=== PATIENT | female | born 1985 | race Two or more races ===

== ENCOUNTER 2017-02-12 11:30 | Emergency (ER) | payer SELFPAY ==
[2016-04-22 00:25] VITALS: BP 122/61
[~2017-02-12 11:30] MED LIST: DOXY50CA PO; FAMO-63 PO; LABE100T3 PO; sertraline
--- NOTE | 2017-02-12 12:19 | PHYS DOC ---
Past Medical History Past Medical History: Anxiety, Depression, Hypertension Past Surgical History: , Tonsillectomy, Tubal ligation, Other Additional Past Surgical Histo: " SURGERY FOR ENDOMETRIOSIS" Alcohol Use: None Drug Use: None Adult General Chief Complaint Chief Complaint: ASTHMA HPI HPI 31-year-old female presenting the emergency department with a rash and shortness of breath. She does have a history of asthma but denies any history of allergies. The rash started 2 days ago. She does not remember encountering any new allergens her knowledge. She does report that she has had a new dog for the last 2 weeks which she thinks may have caused it. Otherwise she denies recent exposure to metals, seafood, peanuts or other nuts, or new detergents. The rash is red. Nonradiating mild intermittent and without alleviating factors. Review of systems is negative for chest pain cough fevers chills abdominal pain. All other review of systems is negative unless otherwise noted in history of present illness. ED course: 31-year-old female presenting to the emergency department with shortness of breath and rash consistent with allergic reaction/anaphylaxis. On examination of the patient she is breathing well on room air without any difficulty. She received a DuoNeb in the emergency department along with steroids. After nebulizer patient is feeling much better. The patient was then discharged home in stable condition to follow up with their primary care physician over the next 2-3 days. They were to return if their symptoms worsened or if they were concerned for any reason. [id number] discharge instructions and return precautions were given. Patient's questions were answered to their satisfaction. Patient is comfortable plan. Review of Systems Review of Systems SEE ABOVE. Current Medications Current Medications Current Medications Medications (Trade) Dose Ordered Sig/Ric Start Time Stop Time Status Last Admin Dose Admin Albuterol/ Ipratropium (Duoneb) 3 ml 1X ONCE 02/12/17 12:30 02/12/17 12:31 DC 02/12/17 12:32 3 ML Prednisone (Prednisone) 50 mg 1X ONCE 02/12/17 12:30 02/12/17 12:31 DC 02/12/17 12:26 50 MG Allergies Allergies Allergies Coded Allergies Type Severity Reaction Last Updated Verified ibuprofen Allergy Severe Shortness of Air 01/20/15 No Physical Exam Physical Exam SEE ABOVE Constitutional: Well developed, well nourished, no acute distress, non-toxic appearance. [] HENT: Normocephalic, atraumatic, bilateral external ears normal, oropharynx moist, no oral exudates, nose normal. [] Eyes: PERRLA, EOMI, conjunctiva normal, no discharge. [] Neck: Normal range of motion, no tenderness, supple, no stridor. [] Cardiovascular:Heart rate regular rhythm, no murmur [] Lungs & Thorax: minimal wheezing. not in resp distress. Normal work of breathing. Abdomen: Bowel sounds normal, soft, no tenderness, no masses, no pulsatile masses. [] Skin: Warm, dry, no erythema, faint maculopapular rash on the upper extremities. Back: No tenderness, no CVA tenderness. [] Extremities: No tenderness, no cyanosis, no clubbing, ROM intact, no edema. [] Neurologic: Alert and oriented X 3, normal motor function, normal sensory function, no focal deficits noted. [] Psychologic: Affect normal, judgement normal, mood normal. [] Current Patient Data Vital Signs Vital Signs Date Time Temp Pulse Resp B/P (MAP) Pulse Ox O2 Delivery O2 Flow Rate FiO2 02/12/17 12:35 97 Room Air EKG EKG [] Radiology/Procedures Radiology/Procedures [] Course & Med Decision Making Course & Med Decision Making Pertinent Labs and Imaging studies reviewed. (See chart for details) [] Dragon Disclaimer Dragon Disclaimer This electronic medical record was generated, in whole or in part, using a voice recognition dictation system. Departure Departure Impression: Primary Impression: Allergic reaction Additional Impression: Asthma Disposition: ADMITTED INPATIENT Condition: STABLE Referrals: UNKNOWN PCP NAME (PCP) ROSETTA RODRIGUEZ MD Patient Instructions: Allergy Tests Additional Instructions: Thank you for allowing us to participate in your care today. Followup with your primary care physician in 3 days if your symptoms do not improve. Call your Primary Doctor tomorrow and inform them of your visit today. If you do not have a primary care provider you can ask for a list of our primary care providers. Return to the emergency department you have any new or concerning findings. This should be evaluated by the primary care physician and any necessary consulting services for continued management within a few days after discharge. Return to emergency room if you have any new or concerning symptoms including but not limited to fever, chills, nausea, vomiting, intractable pain, any new rashes, chest pain, shortness of air, uncontrolled bleeding, difficulty breathing, and/or vision loss. Scripts Prednisone (PREDNISONE) 50 Mg Tablet 50 MG PO DAILY, #4 TAB You received a dose of steroids in the emergency department. Start this medication tomorrow. Prov: DANIELA KHAN MD 02/12/17 Problem Qualifiers DANIELA KHAN MD Feb 12, 2017 12:19
[2017-02-12] MEDS ORDERED: IPRATRPIUM/ALBUTEROL 0.5/2.5MG 3 ML NEBU. NEB ONE (12:30)
[2017-02-12] MEDS ORDERED: predniSONE 10 MG TABLET PO ONE (12:30)
[2017-02-12] MEDS ORDERED: PRED50TA PO (12:53)
== END 2017-02-12 13:12 | disposition other institution (70) ==
LOC: ER 11:30
DX: T78.40XA Allergy, unspecified, initial encounter (principal); J45.909 Unspecified asthma, uncomplicated; I10 Essential (primary) hypertension; Z88.8 Allergy status to other drugs, medicaments and biological substances; X58.XXXA Exposure to other specified factors, initial encounter
CPT/HCPCS: 94250; 94640; 99285; J7512; J7620

== ENCOUNTER 2017-12-18 15:52 | Emergency (ER) | payer SELFPAY ==
[2017-12-18 16:13] LABS: URINE HCG POC HCG NEGATIVE (Negative)
[2017-12-18] MEDS: MORPHINE SULFATE 4 MG/ML DISP.SYRIN. IV (16:26)
[2017-12-18] MEDS: ONDANSETRON PF 4 MG/2 ML VIAL. IV (16:26)
[2017-12-18 16:27] LABS: ADD MAN DIFF? NO
[2017-12-18] MEDS: IOHEXOL 300 MG/ML 100ML VIAL. IV (16:30)
[2017-12-18 16:38] LABS: BASO % 0 % (0-3); EOS # 0.9 x10^3/uL (0.0-0.7); EOS % 11 % (0-3); HEMOGLOBIN 14.7 g/dL (12.0-15.5); LYMPH # 1.6 x10^3/uL (1.0-4.8); LYMPH % 20 % (24-48); MEAN CORPUSCULAR HEMOGLOBIN 33 pg (25-35); MEAN CORPUSCULAR HGB CONC 35 g/dL (31-37); MEAN CORPUSCULAR VOLUME 95 fL (79-100); MONO # 0.4 x10^3/uL (0.0-1.1); MONO % 5 % (0-9); NEUT # 5.2 x10^3uL (1.8-7.7); NEUT % 64 % (31-73); PLATELET COUNT 208 x10^3/uL (140-400); RED BLOOD COUNT 4.42 x10^6/uL (3.50-5.40); RED CELL DISTRIBUTION WIDTH 13.2 % (11.5-14.5); WHITE BLOOD COUNT 8.2 x10^3/uL (4.0-11.0)
[2017-12-18 16:39] LABS: BILIRUBIN,URINE NEGATIVE (NEG); CLARITY,URINE CLEAR; COLOR,URINE YELLOW; GLUCOSE,URINE NEGATIVE (NEG); NITRITE,URINE NEGATIVE (NEG); PH,URINE 6.5; PROTEIN,URINE NEGATIVE (NEG-TRACE); UROBILINOGEN,URINE 0.2 mg/dL (0.2 mg/dL)
[2017-12-18] MEDS ORDERED: CONTRAST GIVEN. MC (16:45)
[2017-12-18 16:55] LABS: ANION GAP 9 (6-14); BLOOD UREA NITROGEN 11 mg/dL (7-20); BUN/CREATININE RATIO 14 (6-20); CALCIUM 8.7 mg/dL (8.5-10.1); CARBON DIOXIDE 25 mmol/L (21-32); CHLORIDE 105 mmol/L (98-107); CREATININE 0.8 mg/dL (0.6-1.0); GFR 82.6; GLUCOSE 101 mg/dL (70-99); POTASSIUM 3.8 mmol/L (3.5-5.1); SODIUM 139 mmol/L (136-145)
[2017-12-18 16:57] LABS: BACTERIA,URINE FEW /HPF (0-FEW); RBC,URINE 0 /HPF (0-2); SQUAMOUS EPITHELIAL CELL,UR MOD /LPF; WBC,URINE 0 /HPF (0-4)
[2017-12-18 16:58] LABS: ALBUMIN/GLOBULIN RATIO 1.2 (1.0-1.7); ALK PHOS 62 U/L (46-116); ALT (SGPT) 24 U/L (14-59); AMYLASE 47 U/L (25-115); AST (SGOT) 14 U/L (15-37); TOTAL BILIRUBIN 0.3 mg/dL (0.2-1.0); TOTAL PROTEIN 7.4 g/dL (6.4-8.2)
[2017-12-18] MEDS: LIDO:MAALOX 1:1 20 ML SINGLE DOSE. SWSW (19:20)
== END 2017-12-18 19:57 | disposition home or self-care (01) ==
LOC: ER 19:57
DX: R10.11 Right upper quadrant pain (principal); F41.9 Anxiety disorder, unspecified; F32.9 Major depressive disorder, single episode, unspecified; I10 Essential (primary) hypertension; Z98.51 Tubal ligation status; Z88.6 Allergy status to analgesic agent
CPT/HCPCS: 36415; 74177; 80053; 81001; 81025; 82150; 85025; 96374; 96375; 99285-25; J2270; J2405; Q9967

== ENCOUNTER 2018-07-31 20:51 | Emergency (ER) | payer OTHER ==
[~2018-07-31] VITALS: Ht 154.9 cm; Wt 106.1 kg
[~2018-07-31 20:51] MED LIST changes: -LABE100T3 PO; +LABE100T5 PO; +PRED50TA PO
[2018-07-31] MEDS ORDERED: KETOROLAC 15 MG/ML VIAL. IV ONE (22:00)
[2018-07-31] MEDS ORDERED: diphenhydrAMINE 50 MG/ML VIAL IVP ONE (22:00)
[2018-07-31] MEDS ORDERED: METOCLOPRAMIDE HCL 10 MG/2 ML VIAL. IV ONE (22:00)
[2018-07-31] MEDS ORDERED: DEXAMETHASONE SOD PHOS 20 MG/5 ML VIAL. IV ONE (22:00)
[2018-07-31] MEDS ORDERED: IV NORMAL SALINE 1000ML BAG 1,000 ML IV ONE (22:00)
[2018-07-31 22:01] LABS: BASO % 0 % (0-3); EOS # 0.4 x10^3/uL (0.0-0.7); EOS % 5 % (0-3); HEMATOCRIT 41.7 % (36.0-47.0); HEMOGLOBIN 14.3 g/dL (12.0-15.5); LYMPH # 2.1 x10^3/uL (1.0-4.8); LYMPH % 27 % (24-48); MEAN CORPUSCULAR HEMOGLOBIN 33 pg (25-35); MEAN CORPUSCULAR HGB CONC 34 g/dL (31-37); MEAN CORPUSCULAR VOLUME 96 fL (79-100); MONO # 0.4 x10^3/uL (0.0-1.1); MONO % 6 % (0-9); NEUT # 4.8 x10^3uL (1.8-7.7); NEUT % 62 % (31-73); PLATELET COUNT 262 x10^3/uL (140-400); RED BLOOD COUNT 4.35 x10^6/uL (3.50-5.40); RED CELL DISTRIBUTION WIDTH 12.9 % (11.5-14.5); WHITE BLOOD COUNT 7.9 x10^3/uL (4.0-11.0)
[2018-07-31 22:03] LABS: BILIRUBIN,URINE NEGATIVE (NEG); CLARITY,URINE CLEAR; COLOR,URINE YELLOW; NITRITE,URINE NEGATIVE (NEG); PROTEIN,URINE NEGATIVE (NEG-TRACE); UROBILINOGEN,URINE 0.2 mg/dL (0.2 mg/dL)
[2018-07-31 22:10] LABS: CALCIUM 9.2 mg/dL (8.5-10.1); CREATININE 0.6 mg/dL (0.6-1.0); GFR 115.1; POTASSIUM 3.8 mmol/L (3.5-5.1)
[2018-07-31 22:16] LABS: ALBUMIN 4.3 g/dL (3.4-5.0); ALBUMIN/GLOBULIN RATIO 1.3 (1.0-1.7); MAGNESIUM 2.3 mg/dL (1.8-2.4); TOTAL BILIRUBIN 0.3 mg/dL (0.2-1.0); TOTAL PROTEIN 7.7 g/dL (6.4-8.2)
[2018-07-31 22:16] LABS: BACTERIA,URINE FEW /HPF (0-FEW); RBC,URINE 0 /HPF (0-2); SQUAMOUS EPITHELIAL CELL,UR OCC /LPF; WBC,URINE 0 /HPF (0-4)
[2018-07-31 22:25] LABS: CREATINE KINASE 134 U/L (26-192)
--- NOTE | 2018-07-31 22:49 | RAD ---
CT brain without contrast, CT cervical spine without contrast. HISTORY: Headache, neck pain CT brain CT scan of brain was done without contrast. There are fluid levels in the maxillary sinus. There is partial opacification of the ethmoid sinuses. A skull fracture is not identified. There is no intracranial hemorrhage or subdural hematoma. There is no mass or shift of the midline intracranially. Ventricles are normal in size. IMPRESSION: 1. Maxillary and ethmoid sinusitis. 2. No intracranial hemorrhage or mass or acute finding noted intracranially. End impression CT cervical spine Axial CT images were obtained to the cervical spine. Sagittal and coronal reconstructed images were reviewed. Thyroid is homogeneous. There is no focal disc protrusion. A C-spine fracture is not identified. There is reversal the normal cervical lordosis probably related to positioning. Disc spaces are normal in height. IMPRESSION: 1. No fracture or acute osseous abnormality noted in the cervical spine. PQRS Compliance Statement: One or more of the following individualized dose reduction techniques were utilized for this examination: 1. Automated exposure control 2. Adjustment of the mA and/or kV according to patient size 3. Use of iterative reconstruction technique Electronically signed by: Kel Farfan MD (07/31/2018 10:44 PM) [facility]
--- NOTE | 2018-07-31 22:58 | PHYS DOC ---
Past Medical History Past Medical History: Anxiety, Depression, Hypertension Past Surgical History: , Tonsillectomy, Tubal ligation, Other Additional Past Surgical Histo: " SURGERY FOR ENDOMETRIOSIS" Alcohol Use: None Drug Use: None Adult General Chief Complaint Chief Complaint: HEADACHE HPI HPI Patient is a 32 year old [f__sex] who presents with [] Review of Systems Review of Systems Constitutional: Denies fever or chills [] Eyes: Denies change in visual acuity, redness, or eye pain [] HENT: Denies nasal congestion or sore throat [] Respiratory: Denies cough or shortness of breath [] Cardiovascular: No additional information not addressed in HPI [] GI: Denies abdominal pain, nausea, vomiting, bloody stools or diarrhea [] : Denies dysuria or hematuria [] Musculoskeletal: Denies back pain or joint pain [] Integument: Denies rash or skin lesions [] Neurologic: Denies headache, focal weakness or sensory changes [] Endocrine: Denies polyuria or polydipsia [] All other systems were reviewed and found to be within normal limits, except as documented in this note. Current Medications Current Medications Current Medications Medications (Trade) Dose Ordered Sig/Ric Start Time Stop Time Status Last Admin Dose Admin Cyclobenzaprine HCl (Flexeril) 10 mg 1X ONCE 07/31/18 23:30 07/31/18 23:31 Dexamethasone Sodium Phosphate (Decadron) 10 mg 1X ONCE 07/31/18 22:00 07/31/18 22:01 DC 07/31/18 21:58 10 MG Diphenhydramine HCl (Benadryl) 50 mg 1X ONCE 07/31/18 22:00 07/31/18 22:01 DC 07/31/18 21:58 50 MG Ketorolac Tromethamine (Toradol 15mg Vial) 15 mg 1X ONCE 07/31/18 22:00 07/31/18 22:01 DC 07/31/18 21:58 15 MG Metoclopramide HCl (Reglan Vial) 10 mg 1X ONCE 07/31/18 22:00 07/31/18 22:01 DC 07/31/18 21:58 10 MG Sodium Chloride 1,000 ml @ 1,000 mls/hr 1X ONCE 07/31/18 22:00 07/31/18 22:59 DC 07/31/18 21:59 1,000 MLS/HR Allergies Allergies Allergies Coded Allergies Type Severity Reaction Last Updated Verified No Known Drug Allergies 07/31/18 No Physical Exam Physical Exam Constitutional: Well developed, well nourished, no acute distress, non-toxic appearance. [] HENT: Normocephalic, atraumatic, bilateral external ears normal, oropharynx moist, no oral exudates, nose normal. [] Eyes: PERRLA, EOMI, conjunctiva normal, no discharge. [] Neck: Normal range of motion, no tenderness, supple, no stridor. [] Cardiovascular:Heart rate regular rhythm, no murmur [] Lungs & Thorax: Bilateral breath sounds clear to auscultation [] Abdomen: Bowel sounds normal, soft, no tenderness, no masses, no pulsatile masses. [] Skin: Warm, dry, no erythema, no rash. [] Back: No tenderness, no CVA tenderness. [] Extremities: No tenderness, no cyanosis, no clubbing, ROM intact, no edema. [] Neurologic: Alert and oriented X 3, normal motor function, normal sensory function, no focal deficits noted. [] Psychologic: Affect normal, judgement normal, mood normal. [] Current Patient Data Vital Signs Vital Signs Date Time Temp Pulse Resp B/P (MAP) Pulse Ox O2 Delivery O2 Flow Rate FiO2 07/31/18 22:56 75 18 97 07/31/18 21:28 97.7 198/93 (128) Room Air 97.7 Lab Values Laboratory Tests Test 07/31/18 21:30 07/31/18 21:33 07/31/18 21:35 Urine Collection Type Void Urine Color Yellow Urine Clarity Clear Urine pH 6.0 Urine Specific [place] 1.010 Urine Protein Negative mg/dL (NEG-TRACE) Urine Glucose (UA) Negative mg/dL (NEG) Urine Ketones (Stick) 15 mg/dL (NEG) Urine Blood Trace (NEG) Urine Nitrite Negative (NEG) Urine Bilirubin Negative (NEG) Urine Urobilinogen Dipstick 0.2 mg/dL (0.2 mg/dL) Urine Leukocyte Esterase Negative (NEG) Urine RBC 0 /HPF (0-2) Urine WBC 0 /HPF (0-4) Urine Squamous Epithelial Cells Occ /LPF Urine Bacteria Few /HPF (0-FEW) POC Urine HCG, Qualitative Hcg negative (Negative) White Blood Count 7.9 x10^3/uL (4.0-11.0) Red Blood Count 4.35 x10^6/uL (3.50-5.40) Hemoglobin 14.3 g/dL (12.0-15.5) Hematocrit 41.7 % (36.0-47.0) Mean Corpuscular Volume 96 fL (79-100) Mean Corpuscular Hemoglobin 33 pg (25-35) Mean Corpuscular Hemoglobin Concent 34 g/dL (31-37) Red Cell Distribution Width 12.9 % (11.5-14.5) Platelet Count 262 x10^3/uL (140-400) Neutrophils (%) (Auto) 62 % (31-73) Lymphocytes (%) (Auto) 27 % (24-48) Monocytes (%) (Auto) 6 % (0-9) Eosinophils (%) (Auto) 5 % (0-3) H Basophils (%) (Auto) 0 % (0-3) Neutrophils # (Auto) 4.8 x10^3uL (1.8-7.7) Lymphocytes # (Auto) 2.1 x10^3/uL (1.0-4.8) Monocytes # (Auto) 0.4 x10^3/uL (0.0-1.1) Eosinophils # (Auto) 0.4 x10^3/uL (0.0-0.7) Basophils # (Auto) 0.0 x10^3/uL (0.0-0.2) Sodium Level 139 mmol/L (136-145) Potassium Level 3.8 mmol/L (3.5-5.1) Chloride Level 100 mmol/L (98-107) Carbon Dioxide Level 27 mmol/L (21-32) Anion Gap 12 (6-14) Blood Urea Nitrogen 12 mg/dL (7-20) Creatinine 0.6 mg/dL (0.6-1.0) Estimated GFR (Cockcroft-Gault) 115.1 BUN/Creatinine Ratio 20 (6-20) Glucose Level 121 mg/dL (70-99) H Calcium Level 9.2 mg/dL (8.5-10.1) Magnesium Level 2.3 mg/dL (1.8-2.4) Total Bilirubin 0.3 mg/dL (0.2-1.0) Aspartate Amino Transferase (AST) 19 U/L (15-37) Alanine Aminotransferase (ALT) 28 U/L (14-59) Alkaline Phosphatase 79 U/L (46-116) Creatine Kinase 134 U/L (26-192) Creatine Kinase MB (Mass) 1.5 ng/mL (0.0-3.6) Creatine Kinase MB Relative Index 1.1 % (0-4) Troponin I Quantitative < 0.017 ng/mL (0.000-0.055) XP-Ksk-[id number]-Type Natriuretic Peptide < 5 pg/mL (0-124) Total Protein 7.7 g/dL (6.4-8.2) Albumin 4.3 g/dL (3.4-5.0) Albumin/Globulin Ratio 1.3 (1.0-1.7) Lipase 121 U/L (73-393) Laboratory Tests 07/31/18 21:35 Laboratory Tests 07/31/18 21:35 EKG EKG @2150 NSR at 76bpm, NO ST elevation, nonspecific t wave inversion III Radiology/Procedures Radiology/Procedures [] Course & Med Decision Making Course & Med Decision Making Pertinent Labs and Imaging studies reviewed. (See chart for details) [] Dragon Disclaimer Dragon Disclaimer This electronic medical record was generated, in whole or in part, using a voice recognition dictation system. Departure Departure Impression: Primary Impression: Headache Additional Impression: Neck pain Disposition: 01 HOME, SELF-CARE Condition: STABLE Referrals: UNKNOWN PCP NAME (PCP) JOHNATHAN GARCIA MD, BRIAN N MD Patient Instructions: Cervical Radiculopathy, [id number], Headache, FAQs Scripts Butalb/Acetaminophen/Caffeine ([id number] 50-325-40) 1 Each Tablet 1 EACH PO Q6HRS PRN for HEADACHE, #14 TAB Prov: ROSETTA CARY DO 07/31/18 Ondansetron (ONDANSETRON ODT) 4 Mg Tab.rapdis 1 TAB PO PRN Q6-8HRS PRN for NAUSEA, #16 TAB Prov: ROSETTA CARY DO 07/31/18 Orphenadrine Citrate (ORPHENADRINE CITRATE) 100 Mg Tablet.er 100 MG PO BID PRN for MUSCLE PAIN, #20 Prov: ROSETTA CARY DO 07/31/18 Problem Qualifiers Primary Impression: Headache Headache type: unspecified Headache chronicity pattern: acute headache Intractability: intractable Qualified Codes: R51 - Headache ROSETTA CARY DO Jul 31, 2018 22:58
[2018-07-31 23:03] VITALS: BP 123/66
[2018-07-31] MEDS ORDERED: ONDA4TAB12 PO (23:06)
[2018-07-31] MEDS ORDERED: BUTA1TAB23 PO (23:06)
[2018-07-31] MEDS ORDERED: ORPH100T PO (23:06)
[2018-07-31] MEDS ORDERED: CYCLOBENZAPRINE 10 MG TABLET. PO ONE (23:30)
--- NOTE | 2018-08-01 03:31 | EKG ---
[facility] [address] [place] [address] Test Date: 2018-07-31 Test Time: 21:50:51 Pat Name: JOLIE CRABTREE Department: Room: Gender: F Pick[employer] Operator: : 1985 Requested By: ROSETTA CARY Order Number: [id number] Reading MD: Andrés Cortes MD Measurements Intervals [place] Rate: 76 P: 37 TN: 182 QRS: 36 QRSD: 96 T: 0 QT: 394 QTc: 447 Interpretive Statements SINUS RHYTHM NON-SPECIFIC ST/T CHANGES Electronically Signed On 08-01-2018 8:35:51 [employer]LECT[employer] by Andrés Cortes MD
== END 2018-07-31 23:17 | disposition home or self-care (01) ==
LOC: ER 20:51
DX: R51 Headache (principal); M54.2 Cervicalgia; J32.0 Chronic maxillary sinusitis; J32.2 Chronic ethmoidal sinusitis; I10 Essential (primary) hypertension; F32.9 Major depressive disorder, single episode, unspecified; F41.9 Anxiety disorder, unspecified
CPT/HCPCS: 36415; 70450; 72125; 80053; 81001; 81025; 82553; 83690; 83735; 83880; 84484; 85025; 93005; 96374; 96375; 99284; J1100; J1200; J1885; J2765; J7030; 96361

== ENCOUNTER 2019-06-18 21:51 | Emergency (ER) | payer SELFPAY ==
[~2019-06-18] VITALS: Ht 154.9 cm; Wt 109.8 kg
[~2019-06-18 21:51] MED LIST changes: +BUTA1TAB23 PO; +ONDA4TAB12 PO; +ORPH100T PO
[2019-06-18 22:01] VITALS: BP 209/108
[2019-06-18] MEDS ORDERED: traMADol 50 MG TABLET PO ONE (22:30)
[2019-06-18] MEDS ORDERED: BUPIVACAINE MPF 0.5% 30 ML VIAL. INJ ONE (22:30)
[2019-06-18] MEDS ORDERED: AMOX1TAB61 PO (22:38)
--- NOTE | 2019-06-18 22:39 | PHYS DOC ---
Past Medical History Past Medical History: Anxiety, Depression, Hypertension Past Surgical History: , Tonsillectomy, Tubal ligation, Other Additional Past Surgical Histo: " SURGERY FOR ENDOMETRIOSIS" Alcohol Use: None Drug Use: None Adult General Chief Complaint Chief Complaint: DENTAL PROBLEM HPI HPI 33-year-old female presents to the emergency department with complaints of toothache. Patient states she's had this off and on and it flares up periodically. She's been in contact with a dentist however has not had scheduled extraction at this time. She's been taking [id number] medications including Tylenol as well as Motrin with no significant improvement. She complains of left ear pain as well. Patient denies any fevers, nausea, vomiting, chest pain, shortness breath, abdominal pain. She does have some intermittent headache associated with pain. All other ROS negative unless documented in HPI Review of Systems Review of Systems See Above Current Medications Current Medications Current Medications Medications (Trade) Dose Ordered Sig/Ric Start Time Stop Time Status Last Admin Dose Admin Bupivacaine HCl (Sensorcaine Mpf 0.5%) 30 ml 1X ONCE 06/18/19 22:30 06/18/19 22:31 DC Tramadol HCl (Ultram) 50 mg 1X ONCE 06/18/19 22:30 06/18/19 22:31 DC Allergies Allergies Allergies Coded Allergies Type Severity Reaction Last Updated Verified No Known Drug Allergies 07/31/18 No Physical Exam Physical Exam See Above Constitutional: Well developed, well nourished, distress 2/2 pain, non-toxic appearance. [] HENT: Normocephalic, atraumatic, bilateral external ears normal, left TM with inflammation, oropharynx moist, no oral exudates, irritation appreciated to top right molar, no drainage, nose normal. [] Neck: Normal range of motion, no tenderness, supple, no stridor. [] Cardiovascular:Heart rate regular rhythm, no murmur [] Lungs & Thorax: Bilateral breath sounds clear to auscultation [] Abdomen: Bowel sounds normal, soft, no tenderness, no masses, no pulsatile masses. [] Skin: Warm, dry, no erythema, no rash. [] Extremities: No tenderness, no edema. [] Neurologic: Alert and oriented X 3, no focal deficits noted. [] Psychologic: Affect normal, judgement normal, mood normal. [] Current Patient Data Vital Signs Vital Signs Date Time Temp Pulse Resp B/P (MAP) Pulse Ox O2 Delivery O2 Flow Rate FiO2 06/18/19 22:01 98.3 95 22 209/108 (141) 98 Room Air 98.3 EKG EKG [] Radiology/Procedures Radiology/Procedures [] Course & Med Decision Making Course & Med Decision Making Pertinent Labs and Imaging studies reviewed. (See chart for details) []33-year-old female presents to the emergency department with complaints of toothache. Patient states she's had this off and on and it flares up periodically. She's been in contact with a dentist however has not had scheduled extraction at this time. She's been taking qbmw-qbl-rtwezik medications including Tylenol as well as Motrin with no significant improvement. She complains of left ear pain as well. Patient denies any fevers, nausea, vomiting, chest pain, shortness breath, abdominal pain. She does have some intermittent headache associated with pain. 2cc bupivicaine injected into the Superior alveolar nerve for pain control Tramadol 50mg PO x 1 Evidence of left OM - abx provided upon discharge Juanita Disclaimer Juanita Disclaimer This electronic medical record was generated, in whole or in part, using a voice recognition dictation system. Departure Departure Impression: Primary Impression: Dental caries Additional Impression: Otitis media Disposition: 01 HOME, SELF-CARE Condition: IMPROVED Referrals: UNKNOWN PCP NAME (PCP) Patient Instructions: Dental Caries, Otitis Media, Adult, [id number] Additional Instructions: Recommend follow up with PCP 3 - 5 days Return to the ER with worsening symptoms, intractable pain, fever, altered mental status Tylenol/Motrin as needed for pain Take antibiotics as directed Scripts Amoxicillin/Potassium Clav (AUGMENTIN 875-125 TABLET) 1 Each Tablet 1 TAB PO Q12HR, #20 TAB Prov: KASHIF ZUNIGA MD 06/18/19 Problem Qualifiers Additional Impression: Otitis media Otitis media type: unspecified Laterality: left Qualified Codes: H66.92 - Otitis media, unspecified, left ear KASHIF ZUNIGA MD Jun 18, 2019 22:39
== END 2019-06-18 22:45 | disposition home or self-care (01) ==
LOC: ER 21:51
DX: K02.9 Dental caries, unspecified (principal); H66.92 Otitis media, unspecified, left ear; F41.9 Anxiety disorder, unspecified; F32.9 Major depressive disorder, single episode, unspecified; I10 Essential (primary) hypertension; Z90.89 Acquired absence of other organs; Z98.51 Tubal ligation status; Z98.890 Other specified postprocedural states
CPT/HCPCS: 64400; 99284; J3490

== ENCOUNTER 2019-07-28 10:14 | Emergency (ER) | payer MEDICAID, OTHER ==
[~2019-07-28] VITALS: Ht 154.9 cm; Wt 109.1 kg
[~2019-07-28 10:14] MED LIST changes: +AMOX1TAB61 PO
--- NOTE | 2019-07-28 10:36 | PHYS DOC ---
Past Medical History Past Medical History: Anxiety, Depression, Hypertension (KATHLEEN DOWD APRN) Past Surgical History: , Tonsillectomy, Tubal ligation, Other Additional Past Surgical Histo: " SURGERY FOR ENDOMETRIOSIS" (KATHLEEN DOWD APRN) Alcohol Use: None Drug Use: None (KATHLEEN DOWD APRN) Adult General Chief Complaint Chief Complaint: DENTAL PROBLEM HPI HPI Patient is a 33 year old female who presents to the ER with complaints of right upper dental pain intermittently for the last year. Pt states the pain became severe again yesterday. She denies any drainage, or gingival swelling of the affected tooth. She denies any injury, fever, nausea, or vomiting. PT states the pain radiates to her left ear and states her left cheek feels swollen. She reports a hx of hypertension and takes labetalol for management of it. She re ports that she took her labetalol this morning. Pt denies any chest pain, shortness of breath, palpitations, numbness, tingling, or weakness. She reports a mild headache. PT currently rates her dental pain a 10/10 on the pain scale, she denies any alleviating factors. PT states she has an appointment with her dentist this week on to have the tooth treated. All other ROS is neg unless otherwise noted in HPI. (KATHLEEN DOWD APRN) Review of Systems Review of Systems See Above (KATHLEEN DOWD APRN) Current Medications Current Medications Current Medications Medications (Trade) Dose Ordered Sig/Ric Start Time Stop Time Status Last Admin Dose Admin Acetaminophen/ Hydrocodone Bitart (Lortab 5/325) 1 tab 1X ONCE 07/28/19 11:00 07/28/19 11:01 DC 07/28/19 10:55 1 TAB Clonidine HCl (Catapres) 0.1 mg 1X ONCE 07/28/19 10:45 07/28/19 10:46 DC 07/28/19 10:50 0.1 MG Hydralazine HCl (Apresoline Inj) 10 mg 1X ONCE 07/28/19 12:15 07/28/19 12:16 DC 07/28/19 12:34 10 MG Ondansetron HCl (Zofran) 4 mg 1X ONCE 2/2/20 12:15 07/28/19 12:16 DC 07/28/19 12:34 4 MG (ROSETTA CARY DO) Allergies Allergies Allergies Coded Allergies Type Severity Reaction Last Updated Verified No Known Drug Allergies 07/31/18 No (ROSETTA CARY DO) Physical Exam Physical Exam See Above Constitutional: Well developed, well nourished, no acute distress, non-toxic appearance, obese. [] HENT: Normocephalic, atraumatic, bilateral external ears normal, nose normal; visible decay and fracture of tooth 3 without surrounding gingival erythema or edema. [] Eyes: PERRLA, EOMI, conjunctiva normal, no discharge. [] Neck: Normal range of motion, no stridor. [] Cardiovascular:Heart rate regular rhythm Lungs & Thorax: Respirations even and unlabored, no retractions, no respiratory distress [] Skin: Warm, dry, no erythema, no rash. [] Extremities: No cyanosis, ROM intact Neurologic: Alert and oriented X 3, no focal deficits noted. [] Psychologic: Affect normal, judgement normal, mood normal. [] (KATHLEEN DOWD APRN) Current Patient Data Vital Signs Vital Signs Date Time Temp Pulse Resp B/P (MAP) Pulse Ox O2 Delivery O2 Flow Rate FiO2 07/28/19 13:10 77 18 99 07/28/19 12:34 239/112 07/28/19 10:55 Room Air 07/28/19 10:28 98.9 98.9 (ROSETTA CARY DO) Lab Values Laboratory Tests Test 07/28/19 12:19 07/28/19 12:21 White Blood Count 8.1 x10^3/uL (4.0-11.0) Red Blood Count 4.86 x10^6/uL (3.50-5.40) Hemoglobin 16.2 g/dL (12.0-15.5) H Hematocrit 46.1 % (36.0-47.0) Mean Corpuscular Volume 95 fL (79-100) Mean Corpuscular Hemoglobin 33 pg (25-35) Mean Corpuscular Hemoglobin Concent 35 g/dL (31-37) Red Cell Distribution Width 12.5 % (11.5-14.5) Platelet Count 259 x10^3/uL (140-400) Neutrophils (%) (Auto) 67 % (31-73) Lymphocytes (%) (Auto) 24 % (24-48) Monocytes (%) (Auto) 5 % (0-9) Eosinophils (%) (Auto) 4 % (0-3) H Basophils (%) (Auto) 1 % (0-3) Neutrophils # (Auto) 5.5 x10^3/uL (1.8-7.7) Lymphocytes # (Auto) 1.9 x10^3/uL (1.0-4.8) Monocytes # (Auto) 0.4 x10^3/uL (0.0-1.1) Eosinophils # (Auto) 0.3 x10^3/uL (0.0-0.7) Basophils # (Auto) 0.0 x10^3/uL (0.0-0.2) Sodium Level 141 mmol/L (136-145) Potassium Level 3.6 mmol/L (3.5-5.1) Chloride Level 101 mmol/L (98-107) Carbon Dioxide Level 28 mmol/L (21-32) Anion Gap 12 (6-14) Blood Urea Nitrogen 13 mg/dL (7-20) Creatinine 0.6 mg/dL (0.6-1.0) Estimated GFR (Cockcroft-Gault) 114.4 BUN/Creatinine Ratio 22 (6-20) H Glucose Level 213 mg/dL (70-99) H Calcium Level 9.0 mg/dL (8.5-10.1) Magnesium Level 1.7 mg/dL (1.8-2.4) L Total Bilirubin 0.5 mg/dL (0.2-1.0) Aspartate Amino Transferase (AST) 14 U/L (15-37) L Alanine Aminotransferase (ALT) 23 U/L (14-59) Alkaline Phosphatase 98 U/L (46-116) Creatine Kinase 74 U/L (26-192) Creatine Kinase MB (Mass) 0.7 ng/mL (0.0-3.6) Creatine Kinase MB Relative Index % (0-4) Troponin I Quantitative < 0.017 ng/mL (0.000-0.055) Total Protein 7.2 g/dL (6.4-8.2) Albumin 4.3 g/dL (3.4-5.0) Albumin/Globulin Ratio 1.5 (1.0-1.7) POC Urine HCG, Qualitative Hcg negative (Negative) Laboratory Tests 07/28/19 12:19 Laboratory Tests 07/28/19 12:19 (ROSETTA CARY DO) Lab Values Laboratory Tests Test 07/28/19 12:19 07/28/19 12:21 White Blood Count 8.1 x10^3/uL (4.0-11.0) Red Blood Count 4.86 x10^6/uL (3.50-5.40) Hemoglobin 16.2 g/dL (12.0-15.5) H Hematocrit 46.1 % (36.0-47.0) Mean Corpuscular Volume 95 fL (79-100) Mean Corpuscular Hemoglobin 33 pg (25-35) Mean Corpuscular Hemoglobin Concent 35 g/dL (31-37) Red Cell Distribution Width 12.5 % (11.5-14.5) Platelet Count 259 x10^3/uL (140-400) Neutrophils (%) (Auto) 67 % (31-73) Lymphocytes (%) (Auto) 24 % (24-48) Monocytes (%) (Auto) 5 % (0-9) Eosinophils (%) (Auto) 4 % (0-3) H Basophils (%) (Auto) 1 % (0-3) Neutrophils # (Auto) 5.5 x10^3/uL (1.8-7.7) Lymphocytes # (Auto) 1.9 x10^3/uL (1.0-4.8) Monocytes # (Auto) 0.4 x10^3/uL (0.0-1.1) Eosinophils # (Auto) 0.3 x10^3/uL (0.0-0.7) Basophils # (Auto) 0.0 x10^3/uL (0.0-0.2) Sodium Level 141 mmol/L (136-145) Potassium Level 3.6 mmol/L (3.5-5.1) Chloride Level 101 mmol/L (98-107) Carbon Dioxide Level 28 mmol/L (21-32) Anion Gap 12 (6-14) Blood Urea Nitrogen 13 mg/dL (7-20) Creatinine 0.6 mg/dL (0.6-1.0) Estimated GFR (Cockcroft-Gault) 114.4 BUN/Creatinine Ratio 22 (6-20) H Glucose Level 213 mg/dL (70-99) H Calcium Level 9.0 mg/dL (8.5-10.1) Magnesium Level 1.7 mg/dL (1.8-2.4) L Total Bilirubin 0.5 mg/dL (0.2-1.0) Aspartate Amino Transferase (AST) 14 U/L (15-37) L Alanine Aminotransferase (ALT) 23 U/L (14-59) Alkaline Phosphatase 98 U/L (46-116) Creatine Kinase 74 U/L (26-192) Creatine Kinase MB (Mass) 0.7 ng/mL (0.0-3.6) Creatine Kinase MB Relative Index % (0-4) Troponin I Quantitative < 0.017 ng/mL (0.000-0.055) Total Protein 7.2 g/dL (6.4-8.2) Albumin 4.3 g/dL (3.4-5.0) Albumin/Globulin Ratio 1.5 (1.0-1.7) POC Urine HCG, Qualitative Hcg negative (Negative) Laboratory Tests 07/28/19 12:19 Laboratory Tests 07/28/19 12:19 (KATHLEEN DOWD APRN) EKG EKG 1218-SR rate 87, no STEMI read by Dr. Cary[] (KATHLEEN DOWD APRN) Radiology/Procedures Radiology/Procedures [] (KATHLEEN DOWD APRN) Course & Med Decision Making Course & Med Decision Making Pertinent Labs and Imaging studies reviewed. (See chart for details) Patient is a 33-year-old female who presented to the emergency department with complaints of left upper dental pain for the last year has been intermittent. On arrival patient was noted to be hypertensive blood pressure was 203/114. Patient states that she took her low Eve as prescribed prior to coming to the emergency department. She denied any headache, vision changes, numbness, tingling, or weakness. Patient was given 0.1 mg of clonidine and hydrocodone 5/325 mg tablet for relief of pain and for hypertension. Her blood pressure continued to increase blood pressure was up to 217/104 approximately one hour after receiving these medications. Patient reported feeling nauseated and clammy at that time. The patient was moved to the main emergency department, CBC, CMP, EKG, and troponin were ordered. EKG was unremarkable. CBC was unremarkable, CMP revealed elevated BUN/creatinine ratio 22, glucose of 213, magnesium of 1.7, negative troponin, otherwise unremarkable.. Urine hCG was also negative in the emergency department. An IV was started in the emergency room and patient was given 10 mg of hydralazine IV. Her blood pressure decreased to 180/101, Blank decreased pain and feeling better. She was advised of her elevated blood glucose, encouraged to take her blood pressure regularly, and follow-up with her primary care doctor about her elevated blood pressure and elevated blood glucose this week. Patient instructed to return to the emergency room if symptoms worsen. Prescription for penicillin VK 500 mg tablets one by mouth 4 times a day 10 days was sent electronically to her pharmacy. The patient was provided with a prescription for tramadol 50 mg tablets 1 every 6 hours as needed for 3 days #12, PT verbalized an understanding of home care, medications, follow-up, and return to ED instructions and was in agreement with the plan of care. [] (KATHLEEN DOWD APRN) Dragon Disclaimer Dragon Disclaimer This electronic medical record was generated, in whole or in part, using a voice recognition dictation system. (KATHLEEN DOWD APRN) Departure Departure Impression: Primary Impression: Dentalgia Additional Impression: Hypertension Disposition: 01 HOME, SELF-CARE Condition: STABLE Referrals: NO PCP (PCP) Patient Instructions: Dental Pain, [id number], Hypertension, [id number] Additional Instructions: Fill the prescription and use as directed. Follow up with your primary care doctor about your blood pressure and elevated blood glucose this week. Return to the ER if symptoms worsen. Scripts Tramadol Hcl (TRAMADOL HCL) 50 Mg Tablet 50 MG PO Q6HRS PRN for PAIN for 3 Days, #12 TAB 0 Refills Prov: KATHLEEN DOWD APRN 07/28/19 Penicillin V Potassium (PENICILLIN V POTASSIUM) 500 Mg Tablet 1 TAB PO QID for 7 Days, #28 TAB 0 Refills Prov: KATHLEEN DOWD APRN 07/28/19 Attending Signature Attending Signature I have reviewed the PA/RADIO MAINTAINER's note and plan of care. I was available for consultation as needed during the patient's visit in the emergency department. I agree with the clinical impression, plan, and disposition. (ROSETTA CARY DO) Problem Qualifiers Additional Impression: Hypertension Hypertension type: essential hypertension Qualified Codes: I10 - Essential (primary) hypertension KATHLEEN DOWD APRN Jul 28, 2019 10:36 ROSETTA CARY DO Jul 31, 2019 14:41
[2019-07-28] MEDS ORDERED: cloNIDine HCL 0.1 MG TABLET PO ONE (10:45)
[2019-07-28] MEDS ORDERED: HYDROcodone/APAP 5/325MG 1 TAB TABLET PO ONE (11:00)
[2019-07-28] MEDS ORDERED: NAPR-514 PO (11:15)
[2019-07-28] MEDS ORDERED: PENI500T PO (11:15)
[2019-07-28] MEDS ORDERED: ONDANSETRON PF 4 MG/2 ML VIAL. IV ONE (12:15)
[2019-07-28] MEDS ORDERED: hydrALAZINE 20 MG/ML VIAL. IVP ONE (12:15)
[2019-07-28 12:27] LABS: BASO % 1 % (0-3); EOS # 0.3 x10^3/uL (0.0-0.7); EOS % 4 % (0-3); HEMATOCRIT 46.1 % (36.0-47.0); HEMOGLOBIN 16.2 g/dL (12.0-15.5); LYMPH # 1.9 x10^3/uL (1.0-4.8); LYMPH % 24 % (24-48); MEAN CORPUSCULAR HEMOGLOBIN 33 pg (25-35); MEAN CORPUSCULAR HGB CONC 35 g/dL (31-37); MEAN CORPUSCULAR VOLUME 95 fL (79-100); MONO # 0.4 x10^3/uL (0.0-1.1); MONO % 5 % (0-9); NEUT # 5.5 x10^3/uL (1.8-7.7); NEUT % 67 % (31-73); PLATELET COUNT 259 x10^3/uL (140-400); RED BLOOD COUNT 4.86 x10^6/uL (3.50-5.40); RED CELL DISTRIBUTION WIDTH 12.5 % (11.5-14.5); WHITE BLOOD COUNT 8.1 x10^3/uL (4.0-11.0)
[2019-07-28 12:35] LABS: CREATININE 0.6 mg/dL (0.6-1.0); GFR 114.4; POTASSIUM 3.6 mmol/L (3.5-5.1)
[2019-07-28 12:41] LABS: ALBUMIN 4.3 g/dL (3.4-5.0); ALBUMIN/GLOBULIN RATIO 1.5 (1.0-1.7); MAGNESIUM 1.7 mg/dL (1.8-2.4); TOTAL BILIRUBIN 0.5 mg/dL (0.2-1.0); TOTAL PROTEIN 7.2 g/dL (6.4-8.2)
[2019-07-28 12:51] LABS: CREATINE KINASE 74 U/L (26-192)
[2019-07-28] MEDS ORDERED: TRAM50TA PO (13:01)
[2019-07-28 13:10] VITALS: BP 172/91
--- NOTE | 2019-07-28 14:48 | EKG ---
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
== END 2019-07-28 13:30 | disposition home or self-care (01) ==
LOC: ER 10:14
DX: K08.89 Other specified disorders of teeth and supporting structures (principal); I10 Essential (primary) hypertension; H92.02 Otalgia, left ear; R51 Headache
CPT/HCPCS: 36415; 80053; 81025; 82553; 83735; 84484; 85025; 93005; 96374; 96375; 99285; J0360; J2405